=== PATIENT | male | born 1990 | race Caucasian/White ===

== ENCOUNTER 2025-03-01 01:35 | Observation (INO) | payer BC, SELFPAY ==
[2025-03-01] VITALS (16 sets, daily range): BP systolic 94–171; BP diastolic 7–109; PULSE 76–115; RESP 14–18; TEMP 36.6–37.9; O2SAT 96–100; BMI 23.7; BMI 24.7
--- NOTE | 2025-03-01 01:57 | CT_ITS ---
PROCEDURE: ABDOMEN/PELVIS W IV CONT ONLY 03/01/2025 REASON FOR EXAM: ABDOMINAL PAIN TECHNIQUE: Procedure Code: [id number] Modality: CT Procedure: ABDOMEN/PELVIS W IV CONT ONLY Coronal and Sagittal reconstruction series were provided. CONTRAST: Isovue 370 VOLUME: 96 mL One or more dose reduction techniques were used (e.g., Automated exposure control, adjustment of the mA and/or kV according to patient size, use of iterative reconstruction technique. RADIATION DOSE SUMMARY: CTDlvol: 13.34 MGy DLP: 723.13 MGycm COMPARISON: None FINDINGS: The liver is normal in size. There are no focal enhancing liver lesions. No intra- or extrahepatic biliary duct dilatation is identified. The hepatic vasculature is patent. The gallbladder fossa is unremarkable. The spleen, pancreas, and adrenal glands are unremarkable. The kidneys are normal in size and attenuation with lobulated contour. There is no hydronephrosis or perinephric fat stranding. No renal calculi are identified. The ureters are normal in caliber and no ureteral calculi are seen. No bowel obstruction is identified. The appendix is seen remarkably distended with internal appendicolith. Associated stranding of the surrounding fat planes and minimal fluid seen without perforation. Findings are consistent with acute appendicitis, recommend clinical and laboratory correlation. Prominent ileocolic lymph nodes are seen likely reactive. Small fat containing umbilical hernia is noted. The abdominal aorta and inferior vena cava appear unremarkable. No free air is identified. The urinary bladder is partially distended and show no abnormalities. Unremarkable appearance of the pelvic organs. No aggressive-appearing osseous lesions are identified. The included lower chest cuts show no gross abnormalities. CT/Abdomen/Pelvis W IV Cont ONLY IMPRESSION: The appendix is seen remarkably distended with internal appendicolith. Associa zeny stranding of the surrounding fat planes and minimal fluid seen without perforation. Findings are consistent with acute antionette endicitis, recommend clinical and laboratory correlation. Small fat containing umbilical hernia. Reading Location[facility] [address]
[2025-03-01] MEDS: 0.9% Normal Saline (1000mL) 1,000 ML 999 ML IV (02:10)
[2025-03-01 02:21] LABS: Hematocrit 38.3 % (40-54); Hemoglobin 11.8 g/dL (13.0-16.5); Immature Granulocytes Count 0.060 X10^3/uL (0.0-0.0); Mean Corp Hgb Conc 30.8 g/dL (32-36); Mean Corpuscular Volume 74.7 fL (80-94); Mean Platelet Vol. 9.1 fl (6.2-12.0); NRBC Flagged by Analyzer 0 % (0-5); POSITIVE MORPHOLOGY YES; Platelet Count 468 K/mm3 (150-450); RBC Distribution Width CV 20.6 % (11.6-14.6); RBC Distribution Width SD 53.6 fl (35.1-43.9); Red Blood Count 5.13 M/mm3 (4.6-6.2); White Blood Count 16.1 K/mm3 (4.4-11.0)
[2025-03-01 02:44] LABS: Differential Indicated SCAN CRITERIA MET
[2025-03-01 03:04] LABS: AST(SGOT) 24 U/L (<=37); Alanine Aminotransfer ALT/SGPT 13 U/L (<=46); Albumin, Serum 4.6 g/dL (3.5-5.0); Alkaline Phosphatase 124 U/L (40-129); Anion Gap 13 (5-15); BUN 12 mg/dL (4-19); BUN/Creat Ratio 12.8 RATIO (10-20); Calcium,Total 9.3 mg/dL (7.6-11.0); Carbon Dioxide 26.4 mmol/L (21.0-32.0); Chloride 97 mmol/L (98-108); Estimated Creatinine Clearance 125.74 ml/min (50-250); Globulin 3.2 g/dL (2.2-4.2); Glucose 147 mg/dL (70-99); Lipase 16 U/L (13-75); Potassium 3.3 mmol/L (3.3-5.1)
[2025-03-01 03:24] LABS: Mucous, Urine 0 SEEN /hpf (<or=2+); Red Blood Cells-Urine 0 SEEN /hpf (0-5)
[2025-03-01 03:27] LABS: Color, Urine Straw (Yellow); Glucose, Dipstick Normal (Normal); Ketone-Dipstick Negative (Negative); Leukocyte Esterase-Dipstick Negative /ul (Negative); Nitrite-Dipstick Negative (Negative); Occult Blood-Urine Negative /ul (Negative); Protein-Dipstick 15 mg/dl (Negative); Specific Gravity, Urine 1.005 (1.002-1.030); Urine Bilirubin Dipstick Negative (Negative)
[2025-03-01 03:27] LABS: Anisocytosis 1+
[2025-03-01 03:28] LABS: Red Cell Morphology NORM C+C NORMAL (NORM C&C)
[2025-03-01 03:30] LABS: Differential Comment SCANNED
[2025-03-01 03:42] LABS: Squamous Epithelial Cells - UA 0-5 SEEN /hpf (0-5)
--- NOTE | 2025-03-01 04:30 | EDS_ITS ---
HPI History of Present Illness Chief Complaint: Abd Pain Narrative Narrative: Patient was seen and examined after presenting to ED for abdominal pain ongoing for 2 days felt like he has been having some abdominal discomfort for longer than that though felt like he was constipated tried taking some medications to help with that but did not seem to help states that the abdominal pain got worse today. States he has a history of ulcerative colitis was previously on Remicade but stopped that about a year ago has not followed up with the GI since then as he was previously being seen in [place] when he lived in [place]. [facility] Medical History Drug abuse Ulcerative colitis Home Medications ?Medication ?Instructions ?Recorded ?Last Taken ?Type buprenorphine HCl 8 mg sublingual 8 mg sublingual BID 03/01/25 Unknown History tablet Allergy/AdvReac Type Severity Reaction Status Date / Time Penicillins (PCN) Allergy Rash Verified 03/01/25 01:38 Social History Smoking Status: Never smoker ROS ROS ED ROS Narrative Pertinent Positives: Abdominal pain concern for constipation history of ulcerative colitis Pertinent Negatives: Fevers chills vomiting.diarrhea black or bloody stools or history of previous abdominal surgery The remainder of review of systems negative unless otherwise stated in the HPI above. Systems reviewed including constitutional, psychiatric, cardiovascular, respiratory, integument, HENT, gastrointestinal. EXAM Physical Exam Narrative Exam Narrative: Afebrile hemodynamically stable does not appear toxic or in distress he is normocephalic and atraumatic his abdomen is soft nondistended but does seem to be notably tender in the right lower quadrant of his abdomen with some rebound tenderness. Const Vital Signs: 03/01/25 01:35 03/01/25 03:46 03/01/25 03:46 Temperature 97.9 F 97.9 F 98.2 F Temperature Source Oral Oral Pulse Rate 113 H 92 112 H Respiratory Rate 18 18 16 Blood Pressure 158/109 H 142/74 H 152/80 H Blood Pressure Mean 125 96 104 Blood Pressure Source Blood Pressure Position Blood Pressure Location Pulse Ox 100 100 100 03/01/25 04:20 Temperature 98.2 F Temperature Source Oral Pulse Rate 115 H Respiratory Rate 16 Blood Pressure 152/80 H Blood Pressure Mean 104 Blood Pressure Source Monitor Blood Pressure Position Semi-Fowlers Blood Pressure Location Left Arm Pulse Ox 100 MDM MDM MDM Narrative Medical decision making narrative: Nursing notes, triage notes, available previous documentation, and vital signs were reviewed. Any discrepancies noted were addressed. Differential Diagnoses: Appendicitis could be cholecystitis could be diverticular disease with constipation Interventions: Zofran Antibiotics Given: Cipro Flagyl Fluids Given: 1 L normal saline Labs Reviewed: Leukocytosis 16.1 hemoglobin is 11.8 no significant electrolyte abnormality or renal insufficiency or transaminitis lipase was 16 urine without evidence of infection Imaging Reviewed: Personally reviewed and interpreted by me: CT abdomen and pelvis definitely demonstrates a stool burden but there is some sort of abnormality ongoing in the right lower quadrant official interpretation is reporting appendicitis with appendicolith Previous Documentation Reviewed: None available or applicable at this time. ED Course: Patient presenting with abdominal pain started about 2 days ago worse today found to have appendicitis not perforated I did discuss with on-call general surgeon Dr. Mello who is agreeable to admission I did provide the patient with Cipro and Flagyl given the penicillin allergy. This note was made utilizing voice recognition software. All attempts were made to correct spelling or other errors prior to note completion. However, due to the fast-paced nature of emergency medicine, some errors may still be present. Lab Data Labs: Laboratory Results - last 24 hr 03/01/25 03/01/25 02:10 03:18 WBC 16.1 H RBC 5.13 Hgb 11.8 L Hct 38.3 L MCV 74.7 L MCH 23.0 L MCHC 30.8 L RDW Std Deviation 53.6 H RDW Coeff of Betsy 20.6 H Plt Count 468 H MPV 9.1 Immature Gran % (Auto) 0.400 Neut % (Auto) 79.7 H Lymph % (Auto) 10.7 L [place] % (Auto) 8.6 Eos % (Auto) 0.4 Baso % (Auto) 0.2 Absolute Neuts (auto) 12.8 H Absolute Lymphs (auto) 1.73 Nucleated RBC % 0 Differential Comment SCANNED Plt Morphology Comment LARGE RBC Morphology NORM C+C Anisocytosis 1+ Ovalocytes RARE Sodium 136 Potassium 3.3 Chloride 97 L Carbon Dioxide 26.4 Anion Gap 13 BUN 12 Creatinine 0.90 Estim Creat Clear Calc 125.74 Est GFR (MDRD) Non-Af 114 BUN/Creatinine Ratio 12.8 Glucose 147 H Calcium 9.3 Total Bilirubin 0.46 AST 24 ALT 13 Alkaline Phosphatase 124 Total Protein 7.8 Albumin 4.6 Globulin 3.2 Albumin/Globulin Ratio 1.4 Lipase 16 Urine Color Straw Urine Clarity Clear Urine pH 7.0 Ur Specific [place] 1.005 Urine Protein 15 H Urine Glucose (UA) Normal Urine Ketones Negative Urine Occult Blood Negative Urine Nitrite Negative Urine Bilirubin Negative Urine Urobilinogen Normal Ur Leukocyte Esterase Negative Urine RBC 0 SEEN Urine WBC 0-5 SEEN Ur Squamous Epith Cells 0-5 SEEN Urine Bacteria RARE Urine Mucus 0 SEEN Radiography Diagnostic Testing: Clinical Impression(s) from Imaging Studies Abdomen/Pelvis CT 03/01/25 01:57 IMPRESSION: The appendix is seen remarkably distended with internal appendicolith. Associated stranding of the surrounding fat planes and minimal fluid seen without perforation. Findings are consistent with acute appendicitis, recommend clinical and laboratory correlation. Small fat containing umbilical hernia. Reading Location: [place] [address] Discharge Plan Triage Chief Complaint: Abd Pain ED Provider: Diane Caicedo Dx/Rx/DC Orders Clinical Impression: Acute appendicitis, Abdominal pain, History of ulcerative colitis Prescriptions: No Action buprenorphine HCl 8 mg tablet, sublingual 8 mg sublingual BID Primary Care Provider: Care Physician,No Primary Referrals: Care Physician,No Primary [Primary Care Provider, Medical] Print Language: Tajik
--- NOTE | 2025-03-01 04:37 | PCM.HP.STD ---
HPI - General General Date of Admission: 03/01/25 Chief Complaint: Acute abdominal pain HPI Narrative MADHURI RODRIGUEZ, is a 34 M who presents to [facility] with his with complaints of acute onset abdominal pain that began in the later hours of . He shares that it is difficult to remember how the pain exactly began but he recalls it always favoring the right side. He believed it to be some uncomfortable constipation but it continued to intensify and this he decided to seek evaluation. He notes some associated mild nausea but no vomiting. He denies any associated fevers or chills. He recalls a similar episode of discomfort approximately 1 month ago that did remit once he was able to have several bowel movements. Patient has a history of ulcerative colitis but confesses that he has not been on Remicade for the last 1 year. He shares that he previously followed with a private secretary out of [place] but relocated to [place] 3 years ago. He denies ever requiring surgery for ulcerative colitis. 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 Soto denies any prior surgical history. Patient's ER workup notable for CBC with leukocytosis 16,000, mild anemia of 11.8, and mild thrombocytosis of 468. CT imaging of the abdomen pelvis demonstrates evidence of a markedly dilated appendix with appendicolith. There is some mild free fluid and stranding but no obvious site of perforation. [facility] Medical History Drug abuse Ulcerative colitis Home Medications ?Medication ?Instructions ?Recorded ?Last Taken ?Type buprenorphine HCl 8 mg sublingual 8 mg sublingual BID 03/01/25 Unknown History tablet Allergy/AdvReac Type Severity Reaction Status Date / Time Penicillins (PCN) Allergy Rash Verified 03/01/25 01:38 Social History Smoking Status: Never smoker Vital Signs Vital Signs Vital Signs: 03/01/25 01:35 03/01/25 03:46 03/01/25 03:46 Temperature 97.9 F 97.9 F 98.2 F Temperature Source Oral Oral Pulse Rate 113 H 92 112 H Respiratory Rate 18 18 16 Blood Pressure 158/109 H 142/74 H 152/80 H Blood Pressure Mean 125 96 104 Blood Pressure Source Blood Pressure Position Blood Pressure Location Pulse Ox 100 100 100 03/01/25 04:20 Temperature 98.2 F Temperature Source Oral Pulse Rate 115 H Respiratory Rate 16 Blood Pressure 152/80 H Blood Pressure Mean 104 Blood Pressure Source Monitor Blood Pressure Position Semi-Fowlers Blood Pressure Location Left Arm Pulse Ox 100 Weight Weight: 175 lb 0.752 oz Body Mass Index (BMI) 23.7 Physical Exam Const alert Constitutional Narrative: Anxious Resp normal respiratory effort GI GI Narrative: Nondistended, soft, tender to palpation directly over McBurney's point. Negative Rovsing, negative psoas Results Lab / Micro Data 03/01/25 02:10 03/01/25 02:10 Labs: Laboratory Results - last 24 hr 03/01/25 02:10: WBC 16.1 H, RBC 5.13, Hgb 11.8 L, Hct 38.3 L, MCV 74.7 L, MCH 23.0 L, MCHC 30.8 L, RDW Std Deviation 53.6 H, RDW Coeff of Betsy 20.6 H, Plt Count 468 H, MPV 9.1, Immature Gran % (Auto) 0.400, Neut % (Auto) 79.7 H, Lymph % (Auto) 10.7 L, [place] % (Auto) 8.6, Eos % (Auto) 0.4, Baso % (Auto) 0.2, Absolute Neuts (auto) 12.8 H, Absolute Lymphs (auto) 1.73, Nucleated RBC % 0, Differential Comment SCANNED, Plt Morphology Comment LARGE, RBC Morphology NORM C+C, Anisocytosis 1+, Ovalocytes RARE, Sodium 136, Potassium 3.3, Chloride 97 L, Carbon Dioxide 26.4, Anion Gap 13, BUN 12, Creatinine 0.90, Estim Creat Clear Calc 125.74, Est GFR (MDRD) Non-Af 114, BUN/Creatinine Ratio 12.8, Glucose 147 H, Calcium 9.3, Total Bilirubin 0.46, AST 24, ALT 13, Alkaline Phosphatase 124, Total Protein 7.8, Albumin 4.6, Globulin 3.2, Albumin/Globulin Ratio 1.4, Lipase 16 03/01/25 03:18: Urine Color Straw, Urine Clarity Clear, Urine pH 7.0, Ur Specific [place] 1.005, Urine Protein 15 H, Urine Glucose (UA) Normal, Urine Ketones Negative, Urine Occult Blood Negative, Urine Nitrite Negative, Urine Bilirubin Negative, Urine Urobilinogen Normal, Ur Leukocyte Esterase Negative, Urine RBC 0 SEEN, Urine WBC 0-5 SEEN, Ur Squamous Epith Cells 0-5 SEEN, Urine Bacteria RARE, Urine Mucus 0 SEEN Imaging Radiology Impression Abdomen/Pelvis CT 03/01/25 01:57 IMPRESSION: The appendix is seen remarkably distended with internal appendicolith. Associated stranding of the surrounding fat planes and minimal fluid seen without perforation. Findings are consistent with acute appendicitis, recommend clinical and laboratory correlation. Small fat containing umbilical hernia. Reading Location: [facility] [address] Assessment & Plan Assessment/Plan (1) Acute appendicitis: PLAN: Patient is a 34-year-old, past diagnosis of ulcerative colitis not presently treated, who presents with just over 24 hours of right sided abdominal pain with associated mild nausea. CT imaging shows clear evidence for diagnosis of acute appendicitis secondary to appendicolith. No perforation noted, however, appendix is dilated at 2 cm and there is some mild free fluid noted. I had a lengthy conversation with patient and his spouse at bedside discussing the natural history of appendicitis and the clinical implications of noting a appendicolith. I shared that this is generally associated with accelerated course of inflammation and increased risk of perforation. I thus recommended we proceed urgently for laparoscopic appendectomy and patient was previously dosed with empiric Cipro and Flagyl by emergency medicine. I further shared risks associated with intraoperative findings of perforated appendicitis or need to potentially perform slightly greater resection with partial cecectomy in order to obtain a clean staple line. Patient and his had a number of questions related to these topics that were answered exhaustively. Consents were then signed. Both the operating team and anesthesia were notified. Patient to be admitted to the floor until his operation and then return to the floor thereafter for monitoring. Given his history of prior opiate abuse we will look to use these sparingly. Jay Mello MD General Surgery Endocrine Surgery Pager: [facility] [address] [place] [address], [facility], [address] [place] [address] Office: [phone] (2) History of ulcerative colitis: PLAN: Patient overall appears minimally symptomatic but I cannot ignore his evidence of anemia on blood work and his reports of constipation. I have thus earnestly recommended he return to following with gastroenterology once he has recovered from the surgery. Will look to refer to care with [place] [facility]. Charges/Coding Visit Charges Inpatient E&M: 56263 Init Hosp L2
[2025-03-01] MEDS: metroNIDAZOLE 500 MG/100 ML BAG 100 MG IV ×2 (04:50→13:13)
[2025-03-01] MEDS: 0.9% Normal Saline (1000mL) 1,000 ML 125 ML IV (05:35)
--- NOTE | 2025-03-01 06:43 | PCM.PRE.AN2 ---
ASA Classification* ASA Classification ASA Classification: 2 and E Assessment & Plan Anesthesia* Anesthesia Assessment Anesthesia Assessment: Discussed sedation and/or anesthesia options, risks, benefits, and alternatives with patient/parents/legal guardian/POA. Questions invited. The patient/parents/legal guardian/POA seems to understand and agrees to proceed with anesthesia plan. Reviewed the physical assessment, medical history, allergy history and patient home medications list prior to surgery/procedure/anesthetic and documented any changes. Performed airway and anesthesia risk assessments. Anesthesia Type Anesthesia Type: General Anesthesia Focused Assessment* Temperature: 98.3 F Pulse Rate: 100 Blood Pressure: 171/99 Respiratory Rate: 18 Pulse Ox: 100 Airway Assessment Mouth opens: >3 cm Mallampati Score: II Labs Anesthesia Preop lab: CBC WBC, (4.4-11.0) 16.1 K/mm3 H Today, 02:10 RBC, (4.6-6.2) 5.13 M/mm3 Today, 02:10 Hgb, (13.0-16.5) 11.8 g/dL L Today, 02:10 Hct, (40-54) 38.3 % L Today, 02:10 Plt Count, (150-450) 468 K/mm3 H Today, 02:10 CHEMISTRY Potassium, (3.3-5.1) 3.3 mmol/L Today, 02:10 Sodium, (133-145) 136 mmol/L Today, 02:10 BUN, (4-19) 12 mg/dL Today, 02:10 Creatinine, (0.70-1.20) 0.90 mg/dL Today, 02:10 Glucose, (70-99) 147 mg/dL H Today, 02:10 COAG Pre-Assessment Diagnosis/Proposed Procedure Planned Operative Procedure(s): Laproscopic Appendectomy Anesthesia History Anesthesia History - microbiology lab technician: Anesthesia History - microbiology lab technician Hx Hospitalization Any Problems With Anesthesia No 03/01/25 05:30 Cholinesterase deficiency No 03/01/25 05:30 You/Your Family Experience No 03/01/25 05:30 fever (hyperthermia) with Relationship Recent Exposure to Contagious No 03/01/25 05:30 Disease Does patient have nerve No 03/01/25 05:30 stimulator Patient instructed to have No 03/01/25 05:30 device shut off --Does patient have Pacemaker or ICD? When Was Last Pacemaker Check QUESTION #4 FULL TEXT: You/Your Family Experience fever (hyperthermia) with Anesthesia Last Oral Intake Last Oral intake: Last Oral Intake NPO since Meds taken in AM with sips of water? Meds patient instructed to take am of surgery PONV PONV - microbiology lab technician: PONV - microbiology lab technician Female HX of Motion Sickness HX of N/V After Surgery Non-Smoker Duration of Surgery greater than 60 minutes Number of Risk Factors PONV Score Height & Weight Height & Weight: Anesthesia: Height & Weight Height 6 ft 0.05 in 03/01/25 05:18 Weight: 82.8 kg 03/01/25 05:18 Body Mass Index (BMI) 24.7 03/01/25 05:18 Respiratory Assessment Respiratory Assessment - microbiology lab technician: Respiratory Tract Infection Hx - microbiology lab technician Hx Respiratory Tract Infection No 03/01/25 05:30 STOP Sleep Apnea STOP Sleep Apnea - microbiology lab technician: STOP Sleep Apnea - microbiology lab technician Hx Hypertension No 03/01/25 05:20 Hx Sleep Apnea No 03/01/25 05:20 CPAP BIPAP Do you snore loudly (louder No 03/01/25 05:20 than talking or can be heard Do you often feel tired/ No 03/01/25 05:20 fatigued/ sleepy during daytime? Has anyone observed you stop No 03/01/25 05:20 breathing during sleep? STOP Results Negative 03/01/25 05:20 QUESTION #5 FULL TEXT : Do you snore loudly (louder than talking or can be heard through closed doors)? Tobacco Use History Tobacco Use History - microbiology lab technician: Tobacco Use History - microbiology lab technician Tobacco Use Smoking Status Never smoker 03/01/25 05:20 Hx Tobacco Use No 03/01/25 05:20 Years Smoking Packs Smoked per Day Smoking Cessation Date was within the last 15 years Hx Smoking Cessation Date Hx Smoking Cessation Counseling Hematologic Medial History Hematologic Hx - microbiology lab technician: Hematologic Medical Hx - client portfolio manager Hx of Blood Transfusion No 03/01/25 05:20 Hx of Transfusion in last 3 No 03/01/25 05:20 Months Date of Last Transfusion (if within last 3 months) Ever experience any problems No 03/01/25 05:20 with transfusion(s)? Specify any problems Hx of Preganancy in last 3 N/A 03/01/25 05:20 Months Nurse Filling Out Transfusion CSIGNORIN 03/01/25 05:20 & Questions: Date: 03/01/25 03/01/25 05:20 Time: 05:23 03/01/25 05:20 Patient unable to answer at this time (ie. confused, unrespo /Reproduction History /Reproductive History - microbiology lab technician: /Reproductive Hx- microbiology lab technician Hx Now Gestational Age (in weeks): EDC: Hx Hx Para Hx Section SAB Does the father of the baby or his family experience fever w Father of the baby Malignant Hypertension history comment Active Medications Active Medications: Current Medications Generic Name Dose Route Start Last Admin Trade Name Freq PRN Reason Stop Dose Admin Acetaminophen 650 mg 03/01/25 04:52 Acetaminophen 325 Mg Tablet PO Q6H PRN PRN Pain 1-10 or Fever Sodium Chloride 1,000 mls @ 125 mls/hr 03/01/25 04:55 03/01/25 05:35 IV 125 mls/hr .Q8H JANEL Administration Metronidazole 500 mg in 100 mls @ 100 mls/hr 03/01/25 14:00 Flagyl IV Q8 JANEL Ciprofloxacin 400 mg in 200 mls @ 200 mls/hr 03/01/25 22:00 Cipro IV Q12 JANEL Sodium Chloride 250 mls @ 15 mls/hr 03/01/25 05:16 IV .[id number] PRN Saline Flush Sodium Chloride 250 mls @ 15 mls/hr 03/01/25 05:16 IV .[id number] PRN Additional IVPB Infusion Ondansetron HCl 4 mg 03/01/25 04:52 Ondansetron 4 Mg/2 Ml Vial IV Q6H PRN PRN NAUSEA/VOMITING Sodium Chloride 10 - 40 ml 03/01/25 05:16 0.9% Saline Lock 10 Ml Syringe IV UD PRN SALINE FLUSH PFSH Medical History Drug abuse Ulcerative colitis Home Medications ?Medication ?Instructions ?Recorded ?Last Taken ?Type buprenorphine HCl 8 mg sublingual 8 mg sublingual BID 03/01/25 Unknown History tablet Allergy/AdvReac Type Severity Reaction Status Date / Time Penicillins (PCN) Allergy Rash Verified 03/01/25 01:38 Social History Smoking Status: Never smoker Review of Systems (Anesthesia) ROS Narrative System reviewed and no additional complaints, except as documented.
--- NOTE | 2025-03-01 07:05 | APP_PTH ---
PATIENT: MADHURI RODRIGUEZ Jr. LOC: MS3 U#:[id number] AGE/SX: 34/M ROOM: [facility] RE03/01/[address]: Dr. Jay Mello MD : 1990 BED: 1 DIS: 03/01/2025 SPEC #: [id number] RECD: 03/03/25 06:54 STATUS: PEBBLES TABARES #: [id number] JANELLE: 03/01/25 07:[address]: Jay Mello DEPT: SURGICAL PATHOLOGY RECD BY: Brandan Peña ENTERED: 03/03/25 09:12 SP TYPE: APPENDIX OTHR DR: Briseyda Primary Care Phys Tissues: A - Appendix, NOS Procedures: Surgery Specimen Level III HEADER OPERATION: Laparoscopic appendectomy PRE-OP DIAGNOSIS: Acute appendicitis, history of ulcerative colitis TISSUE SUBMITTED: A- Appendix MICROSCOPIC DIAGNOSIS A. Appendix, appendectomy: - Acute appendicitis in a background of chronic inflammation with scattered lymphoid aggregates. - Fecalith. - No granulomas or dysplasia seen. MICROSCOPIC DESCRIPTION Slides are reviewed. GROSS DESCRIPTION A. Received in formalin labeled with the patient's name and date of . Designated as appendix is a 7.9 x 2.0 cm boykin to beltran dilated appendix with moderate amount of attached, congested mesoappendix. There is patchy serosal congestion and moderate amount of serosal exudate spanning to the underlying mesoappendix. The margin is inked black and shaved. Sectioning reveals boykin-white, edematous cut surfaces with a moderate amount of fecal material including a fecalith within the lumen. Definitive mass lesions are not grossly apparent. Big [employer] Admin sections are submitted in 6 cassettes including the margin in cassettes A1-A2 and the distal tip in cassettes A2-A4. CO 03/03/2025 CPT:05459
[2025-03-01] MEDS: Midazolam 2 MG/2 ML Syringe IV (07:10)
[2025-03-01] MEDS: Lidocaine 1% (5 ml sdv) 5 ML Vial 4 ML IV (07:11)
[2025-03-01] MEDS: fentaNYL 100 MCG/2 ML Ampul IV (07:12)
[2025-03-01] MEDS: Bupiv/Epi 0.25% 30 ML Vial (08:42)
--- NOTE | 2025-03-01 08:52 | PCM.OPRPT ---
Procedures Digestive 40xxx-49xxx: 27164 Laparoscopy appendectomy Operative Report (Standard) Operative Information Date of Procedure: 03/01/25 Pre-Operative Diagnosis: Acute appendicitis Post-Operative Diagnosis: Severe acute uncomplicated appendicitis Surgery/Procedure Performed: Laparoscopic appendectomy recreational leader: Yes Director Cloud Transformation: Rain Montilla Tasks completed by airplane first officer: Opening & closing Type of Anesthesia: General/Supplemental RN Documented Start/Stop Times: Operation Date: 03/01/25 07:05 Case Time Anesthesia Start 03/01/25 07:04 Into Room 03/01/25 07:04 Procedure Start 03/01/25 07:35 Procedure End 03/01/25 09:00 Anesthesia End 03/01/25 09:15 Out of Room 03/01/25 09:15 Into Recovery 03/01/25 09:17 Out of Recovery 03/01/25 09:51 Procedure Start Time: 07:35 Procedure Stop Time: 09:00 Select all DRAINS/GRAFTS/IMPLANTS that apply: None Estimated Blood Loss: 25 Specimen collected: Yes Description of specimen(s) removed: appendix Description of surgery: After appropriate identification in the preoperative holding area, the patient was brought to the operating room and placed supine on the operating room table. Antibiotics had been preoperatively administered. Patient was then induced with general endotracheal anesthetic. The abdomen was prepped and draped in usual sterile fashion. Formal timeout was conducted to confirm both the patient and the procedure. A supraumbilical incision was made and carried down to the level of the fascia which was sharply opened. After opening the peritoneum in like fashion a finger sweep was made to confirm position, and a balloon trocar was placed and pneumoperitoneum was established to 15 mmHg. Patient was positioned in Trendelenburg with the left side down. Two additional 5 mm trocars were placed in the left lower quadrant and suprapubic positions. The peritoneum was inspected and there were no signs of inadvertent injury from this [place] entry. The appendix was visualized with severe dilation and inflammation. Some simple free fluid appeared collected in the right paracolic gutter and there was otherwise no evidence of perforation. The small intestine was adherent to the mesoappendix while the superior border of the appendix was adherent to the mesocolon superiorly. Using blunt laparoscopic dissection, a window was found between the mesoappendix and the small bowel. Several dense adhesions were taken with the use of the harmonic scalpel. I then used a chopsticks method with 2 laparoscopic graspers to try to bluntly separate the appendix away from the its adhesions with the retroperitoneum. As I proceeded laterally with this maneuver, the tip was too densely adherent to the retroperitoneum to be pried apart. So, after confirming this tissue was only as inflammatory rind it was divided with laparoscopic harmonic scalpel. Additional blunt dissection was made along the lateral aspect of the appendix using a [place] grasper to first establish a plane and then the harmonic scalpel to divide the tissue. In this way I was able to finally define the base of the appendix laterally. Once I had assured that we were both dissected completely to the level of the appendiceal base and well away from the terminal ileal insertion, the base of the appendix was sealed and amputated with serial firings (x 3) from an Endo TRISTEN stapler. The appendix was placed in an Endo Catch bag. The staple line was inspected for hemostasis. Some mildly bloody irrigation was suctioned free the right paracolic gutter and Morison's pouch superiorly. After hemostasis was confirmed the appendix was removed from the umbilical port site which required sharply upsizing the fascial opening slightly. Pneumoperitoneum was then evacuated and the supraumbilical port site fascia was closed with #1 Vicryl in a [id number] fashion. The port sites were infiltrated with a total of 30 mL local anesthetic (0.25% bupivacaine with epinephrine). The skin of each port site was closed with 4-0 Monocryl in a subcuticular fashion. Steri-Strips and OpSite dressings were applied. Patient tolerated procedure well without any apparent complications. They were awoken from general anesthetic without issue and transferred to post anesthesia care unit for ongoing recovery. Surgical Findings: ? Severely dilated appendix adherent to small bowel inferiorly in the colon superiorly with largely fused anatomic planes ? Simple fluid adjacent to the appendix in the right paracolic gutter Complications Complications: No Admit VTE Documentation VTE Mechan Device Prophylaxis: SCD's
--- NOTE | 2025-03-01 09:26 | PCM.POST.ANE ---
Anesthesia: Postop Eval I Current Vital Signs Temperature: 98.9 F Pulse Rate: 82 Blood Pressure: 94/67 Respiratory Rate: 16 Pulse Ox: 100 Oxygen Delivery Method: Room Air Assessment Airway patent: Yes Spontaneous unlabored respirations: Yes Mental status: Awake and Calm nausea: No Vomiting: No Anesthesia Complication: No Fluid Hydration Crystalloid volume administer (ml): 900 Total IV fluid infused: 900 Progress Note Anesthesia document: Postop Eval 1 completed: Yes
--- NOTE | 2025-03-01 09:27 | PCM.POSTANE2 ---
Anesthesia Postop Eval I Sum Postop Eval Completion status Anesthesia document: Postop Eval 1 completed: Yes Anesthesia Postop Eval I Summary Anesthesia Postop Eval I Summary: Anesthesia Postop Eval I: Assessment Summary Airway patent Yes 03/01/25 09:27 Spontaneous unlabored Yes 03/01/25 09:27 respirations Mental status Awake,Calm 03/01/25 09:27 nausea No 03/01/25 09:27 Vomiting No 03/01/25 09:27 Anesthesia Postop Eval I: Fluid Summary Crystalloid volume administer 900 03/01/25 09:27 (ml) Colloids volume administered ( ml) Blood Product volume administered (ml) Total IV fluid infused 900 03/01/25 09:27 Anesthesia Postop Eval I: Summary Notes Anesthesia Complication No 03/01/25 09:27 Anesthesia Complication Comment: Post-operative progress note Anesthesia: Postop Eval II Evaluation Mental status: Awake Pain Level: 0 nausea: No Vomiting: No
--- NOTE | 2025-03-01 10:52 | DCINST_ITS ---
Discharge Instructions DC O2, CPAP, BIPAP needs Home O2 Discharge instructions: No Dressing / Incision Discharge Activity: May Not Drive (No driving while using narcotic pain medication) and May Shower (Postoperative day 1) May shower in (days): 2 Ice area for (Minutes): 20 Lifting Restrictions: No lifting greater than 15 pounds for 2 weeks after surgery Dressing / Incision Call your doctor if your incision/area has: Continuous Slow Oozing, Increased Pain/ Swelling, Increased Redness, Foul Smelling Discharge and Swelling at the incision site Call your doctor if you observe: Fever of 101 or Higher Remove Dressing in: 2 days (Please leave Steri-Strips intact until they fall off spontaneously or are taken off at your follow-up visit) Cleanse incision/area with: Soap & Water Follow Up Care Please Follow Up With: Jay Mello MD When: 7-10days postop Test Results: Test results from this visit will be discussed in further detail at your follow- up appointment, if applicable. Discharge Plan Admission Admit Date/Time: 03/01/25 04:52 Primary Reason for Your Visit: Appendicitis Attending Provider: Jay Mello Primary Care Provider: Care Physician,Briseyda Primary Discharge Orders/Prescriptions Prescriptions: No Action buprenorphine HCl 8 mg tablet, sublingual 8 mg sublingual BID Referrals / Follow Up: Care Physician,No Primary [Primary Care Provider, Medical] Disposition Disposition (needs filled in before D/C Order can be placed): Home, Self Care
--- NOTE | 2025-03-01 10:53 | DS.PCM_ITS ---
Providers Date of Admission: 03/01/25 Primary Care Physician: No Primary Care Phys Reason For Visit: ACUTE APPENDICITIS Diagnosis Discharge Diagnosis (1) Acute appendicitis: Status: Acute Code(s): K35.80 - Unspecified acute appendicitis Plan: Patient is a 34-year-old, past diagnosis of ulcerative colitis not presently treated, who presents with just over 24 hours of right sided abdominal pain with associated mild nausea. CT imaging shows clear evidence for diagnosis of acute appendicitis secondary to appendicolith. No perforation noted, however, appendix is dilated at 2 cm and there is some mild free fluid noted. I had a lengthy conversation with patient and his spouse at bedside discussing the natural history of appendicitis and the clinical implications of noting a appendicolith. I shared that this is generally associated with accelerated course of inflammation and increased risk of perforation. I thus recommended we proceed urgently for laparoscopic appendectomy and patient was previously dosed with empiric Cipro and Flagyl by emergency medicine. I further shared risks associated with intraoperative findings of perforated appendicitis or need to potentially perform slightly greater resection with partial cecectomy in order to obtain a clean staple line. Patient and his had a number of questions related to these topics that were answered exhaustively. Consents were then signed. Both the operating team and anesthesia were notified. Patient to be admitted to the floor until his operation and then return to the floor thereafter for monitoring. Given his history of prior opiate abuse we will look to use these sparingly. Jay Mello MD General Surgery Endocrine Surgery Pager: [facility] [address] [place] [address], [address] [place] [address] Office: [phone] (2) History of ulcerative colitis: Status: Acute Code(s): Z87.19 - Personal history of other diseases of the digestive system Plan: Patient overall appears minimally symptomatic but I cannot ignore his evidence of anemia on blood work and his reports of constipation. I have thus earnestly recommended he return to following with gastroenterology once he has recovered from the surgery. Will look to refer to care with [facility]. Medications at Discharge Home Medications buprenorphine HCl 8 mg sublingual tablet 8 mg sublingual BID 03/01/25 Hospital Course Operations appendectomy Procedures None Summary of Care Provided Hospital Course: Patient is a 34-year-old male who was evaluated early in the morning of 03/01/2025 after presentation with complaints of acute onset abdominal pain began approximately 30 hours prior. Diagnostic workup through the emergency department revealed a diagnosis of acute appendicitis. Exam was further confirmatory. Surgical appendectomy was recommended and patient was counseled about particular clinical concern for more accelerated/aggressive appendicitis given the finding of multiple appendicoliths on CT imaging. After providing his consent he underwent surgery later the same morning. Procedure was completed in uncomplicated fashion patient was returned to the medical surgical wing where he underwent additional observation. Diet was advanced as tolerated and he was monitored for appropriate pain control. He was evaluated in the evening of his procedure and found to have appropriate pain control and tolerance of his diet. Several clarifications were requested from patient and his spouse regarding both activity restrictions as well as follow-up expectations. Patient and his spouse expressed appreciation for the care and confidence with a plan to transition home. Patient was thus granted discharge to home in improved condition. Physical Exam Const Constitutional Narrative: Drowsy but appropriate with questions Resp normal respiratory effort GI GI Narrative: Operative port sites clean dry and intact, nondistended, appropriately tender to palpation. Weight / BMI Weight Weight: 182 lb 8.684 oz Body Mass Index (BMI) 24.7 ABG / Lab / Microbiology Data 03/01/25 02:10 03/01/25 02:10 Laboratory: Laboratory Results - last 24 hr 03/01/25 02:10: WBC 16.1 H, RBC 5.13, Hgb 11.8 L, Hct 38.3 L, MCV 74.7 L, MCH 23.0 L, MCHC 30.8 L, RDW Std Deviation 53.6 H, RDW Coeff of Betsy 20.6 H, Plt Count 468 H, MPV 9.1, Immature Gran % (Auto) 0.400, Neut % (Auto) 79.7 H, Lymph % (Auto) 10.7 L, [place] % (Auto) 8.6, Eos % (Auto) 0.4, Baso % (Auto) 0.2, A bsolute Neuts (auto) 12.8 H, Absolute Lymphs (auto) 1.73, Nucleated RBC % 0, Differential Comment SCANNED, Plt Morphology Comment LARGE, RBC Morphology NORM C+C, Anisocytosis 1+, Ovalocytes RARE, Sodium 136, Potassium 3.3, Chloride 97 L, Carbon Dioxide 26.4, Anion Gap 13, BUN 12, Creatinine 0.90, Estim Creat Clear Calc 125.74, Est GFR (MDRD) Non-Af 114, BUN/Creatinine Ratio 12.8, Glucose 147 H , Calcium 9.3, Total Bilirubin 0.46, AST 24, ALT 13, Alkaline Phosphatase 124, Total Protein 7.8, Albumin 4.6, Globulin 3.2, Albumin/Globulin Ratio 1.4, Lipase 16 03/01/25 03:18: Urine Color Straw, Urine Clarity Clear, Urine pH 7.0, Ur Specific [place] 1.005, Urine Protein 15 H, Urine Glucose (UA) Normal, Urine Ketones Negative, Urine Occult Blood Negative, Urine Nitrite Negative, Urine Bilirubin Negative, Urine Urobilinogen Normal, Ur Leukocyte Esterase Negative, Urine RBC 0 SEEN, Urine WBC 0-5 SEEN, Ur Squamous Epith Cells 0-5 SEEN, Urine Bacteria RARE, Urine Mucus 0 SEEN Radiography Diagnostic Testing: Radiology Impression Abdomen/Pelvis CT 03/01/25 01:57 IMPRESSION: The appendix is seen remarkably distended with internal appendicolith. Associated stranding of the surrounding fat planes and minimal fluid seen without perforation. Findings are consistent with acute appendicitis, recommend clinical and laboratory correlation. Small fat containing umbilical hernia. [facility] Instructions May shower in (days): 2 Ice area for (Minutes): 20 Call your doctor if your incision/area has: Continuous Slow Oozing, Increased Pain/ Swelling, Increased Redness, Foul Smelling Discharge and Swelling at the incision site Call your doctor if you observe: Fever of 101 or Higher Cleanse incision/area with: Soap & Water DC O2, CPAP, BIPAP Needs Home O2 Discharge instructions: No Please Follow Up With: Jay Mello MD When: 7-10days postop Meaningful Use Info Meaningful Use Meaningful Use Diagnoses (Choose all that apply): None applicable Discharge Plan Admission Admit Date/Time: 03/01/25 04:52 Primary Reason for Your Visit: Appendicitis Attending Provider: Jay Mello Primary Care Provider: Wilmer Physician,Briseyda Primary Discharge Orders/Prescriptions Prescriptions: No Action buprenorphine HCl 8 mg tablet, sublingual 8 mg sublingual BID Referrals / Follow Up: Care Physician,No Primary [Primary Care Provider, Medical] Disposition Disposition (needs filled in before D/C Order can be placed): Home, Self Care Charges/Coding Visit Charges Inpatient E&M: 91189 Disch Hosp
== END 2025-03-01 17:48 | disposition home or self-care (01) ==
LOC: ED 02:28 → MS3 04:57
PROVIDERS: Admitting Provider Surgery; Emergency Provider Specialist/Technologist Athletic Trainer; Visit Provider Surgery
PROC: 0DTJ4ZZ Resection of Appendix, Percutaneous Endoscopic Approach (ICD-10-PCS; CPT 44970; principal; 2025-03-01 06:45)
DX: K35.80 Unspecified acute appendicitis (principal); Z87.19 Personal history of other diseases of the digestive system; K38.1 Appendicular concretions
CPT/HCPCS: 44970; 00840; 74177; 80053; 81001; 83690; 85025; 88304; 96365; 96375; 99221; 99284; Q9967; A4216; G0378; J0744; J2405